=== PATIENT | female | born 1995 | race Hispanic/Latino ===

== ENCOUNTER 2018-10-27 20:04 | Emergency (ER) | payer OTHER ==
--- OUTSIDE RECORDS SUMMARY | 2018-10-27 20:06 | XMS REPORT ---
:1995 Author Organization eClinicalWorks Care Team Providers Name Role Phone Castro, Raquel Provider Role Unavailable Allergies, Adverse Reactions, Alerts Substance Reaction Event Type N.K.D.A. 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, unspecified whether recurrent Problem Anxiety F41.9 Active Assessment 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
--- OUTSIDE RECORDS SUMMARY | 2018-10-27 20:07 | XMS REPORT ---
[...] L65.9 Active Assessment Anxiety F41.9 Active Assessment Blood tests for routine general Z00.00 Active physical examination Assessment Other fatigue R53.83 Active Assessment Personal [...] Start End Status Dosage System Date Date HydrOXYzine HCl [facility] 67089351420 25 MG Orally at Nov , Active 1-2 bedtime 2017 tablet as needed Zoloft ND 11254498902 25 MG Orally Jul 14, Active 1 tablet Once a day 2017 Results No Known Results Summary Purpose eClinicalWorks Submission
--- OUTSIDE RECORDS SUMMARY | 2018-10-27 20:07 | XMS REPORT ---
[...] Status Dosage System Date Date HydrOXYzine HCl [facility] 41378426600 25 MG Orally at Active 1-2 bedtime tablet as needed HydrOXYzine HCl ND 50504543195 25 MG Orally at Active 1-2 bedtime tablet as needed Lexapro ND 44914768456 10 MG Orally Sep 08, Active 1 tablet Once a day 2018 Zoloft ND 13584493042 50 MG Orally Inactive 1 tablet Once a day Trazodone HCl ND 67019012354 50 MG Orally Sep 08, Active 1 tablet Once a day 2019 at bedtime as needed Results No Known Results Summary Purpose eClinicalWorks Submission
--- OUTSIDE RECORDS SUMMARY | 2018-10-27 20:07 | XMS REPORT ---
:1995 Author Organization eClinicalWorks Care Team Providers Name Role Phone Matthew Raquel Provider Role Unavailable Allergies, Adverse Reactions, Alerts Substance Reaction Event Type N.K.D.A. Info Not Available Non Drug Allergy Problems Problem Type Condition Code Onset Dates Condition Status Assessment Personal history of other mental Z86.59 Active and behavioral disorders Assessment Anxiety F41.9 Active Assessment Other fatigue [...] Start End Status Dosage System Date Date Trazodone HCl [facility] 79522953919 50 MG Orally Active 1 tablet Once a day at bedtime as needed HydrOXYzine HCl ND 39208651525 25 MG Orally at Active 1-2 bedtime tablet as needed HydrOXYzine HCl ND 21135060180 25 MG Orally at Active 1-2 bedtime tablet as needed Lexapro [facility] 95865370658 20 MG Orally Active 1 tablet Once a day Zoloft ND 04204341105 50 MG Orally Inactive 1 tablet Once a day Results No Known Results Summary Purpose eClinicalWorks Submission
[2018-10-27] MEDS ORDERED: IBUPROFEN 200 MG TAB PO ONE (20:33)
--- NOTE | 2018-10-27 20:55 | EDPHYS ---
Physician Documentation [facility] Name: Alethea Loja Age: 22 yrs Sex: Female : 1995 Arrival Date: 10/27/2018 Time: 20:08 Bed 18 Private MD: Raquel Castro ED Physician Damien Howard HPI: 10/27 20:33 This 22 yrs old Female presents to ER via Ambulatory with complaints of Flu jr8 Symptoms. 20:33 The patient reports fever, with an emergency department temperature of 100.2 degrees jr8 Fahrenheit. Onset: The symptoms/episode began/occurred acutely, today. Modifying factors: The patient has had contact with sick son. Associated signs and symptoms: Pertinent positives: cough, runny nose, sinus congestion, sore throat. Severity of symptoms: At their worst the symptoms were moderate in the emergency department the symptoms are unchanged. The patient has not experienced similar symptoms in the past. The patient has not recently seen a physician. 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 - Social history:: Smoking status: Patient/guardian denies using tobacco, never smoked, Patient/guardian denies using alcohol, street drugs. - Ebola Screening: : No symptoms or risks identified at this time. ROS: 20:33 Eyes: Negative for injury, pain, redness, and discharge, Neck: Negative for injury, jr8 pain, and swelling, Cardiovascular: Negative for chest pain, palpitations, and edema, Abdomen/GI: Negative for abdominal pain, nausea, vomiting, diarrhea, and constipation, Back: Negative for injury and pain, MS/Extremity: Negative for injury and deformity, Skin: Negative for injury, rash, and discoloration, Neuro: Negative for headache, weakness, numbness, tingling, and seizure. 20:33 Constitutional: Positive for body aches, chills, fever. 20:33 ENT: Positive for rhinorrhea, sinus congestion, sore throat. 20:33 Respiratory: Positive for cough, Negative for dyspnea on exertion, shortness of breath, sputum production, wheezing. Exam: 20:33 Eyes: Pupils equal round and reactive to light, extra-ocular motions intact. Lids and jr8 lashes normal. Conjunctiva and sclera are non-icteric and not injected. Cornea within normal limits. Periorbital areas with no swelling, redness, or edema. ENT: Nares patent. No nasal discharge, no septal abnormalities noted. Tympanic membranes are normal and external auditory canals are clear. Oropharynx with redness. No swelling, or masses, exudates, or evidence of obstruction, uvula midline. Mucous membranes moist. Neck: Trachea midline, no thyromegaly or masses palpated, and no cervical lymphadenopathy. Supple, full range of motion without nuchal rigidity, or vertebral point tenderness. No Meningismus. Cardiovascular: Regular rate and rhythm with a normal S1 and S2. No gallops, murmurs, or rubs. Normal PMI, no JVD. No pulse deficits. Respiratory: Lungs have equal breath sounds bilaterally, clear to auscultation and percussion. No rales, rhonchi or wheezes noted. No increased work of breathing, no retractions or nasal flaring. Abdomen/GI: Soft, non-tender, with normal bowel sounds. No distension or tympany. No guarding or rebound. No evidence of tenderness throughout. Back: No spinal tenderness. No costovertebral tenderness. Full range of motion. Skin: Warm, dry with normal turgor. Normal color with no rashes, no lesions, and no evidence of cellulitis. MS/ Extremity: Pulses equal, no cyanosis. Neurovascular intact. Full, normal range of motion. Neuro: Awake and alert, GCS 15, oriented to person, place, time, and situation. Cranial nerves II-XII grossly intact. Motor strength 5/5 in all extremities. Sensory grossly intact. Cerebellar exam normal. Normal gait. Vital Signs: 20:14 BP 129 / 87; Pulse 128; Resp 17; Temp 100.2(O); Pulse Ox 98% ; Weight 72.57 kg; Height tl1 5 ft. 2 in. (157.48 cm); Pain 7/10; 21:24 BP 118 / 85; Pulse 113; Resp 18; Pulse Ox 99% on R/A; tl2 20:14 Body Mass Index 29.26 (72.57 kg, 157.48 cm) tl1 MDM: 20:24 Patient medically screened. jr8 20:53 Data reviewed: vital signs, nurses notes, lab test result(s), Flu: positive and as a jr8 result, I will discharge patient. Data interpreted: Pulse oximetry: on room air is 98 %. Interpretation: normal. Counseling: I had a detailed discussion with the patient and/or guardian regarding: the historical points, exam findings, and any diagnostic results supporting the discharge/admit diagnosis, lab results, the need for outpatient follow up, a family practitioner, to return to the emergency department if symptoms worsen or persist or if there are any questions or concerns that arise at home. 10/27 20:20 Order name: Flu; Complete Time: 20:53 tl2 10/27 20:23 Order name: Strep; Complete Time: 20:53 tl2 10/27 20:53 Order name: Throat Culture EDMS Administered Medications: 20:24 Drug: Motrin 600 mg Route: PO; tl2 21:26 Follow up: Response: No adverse reaction tl2 Disposition: 10/28 05:49 Co-signature as Attending Physician, Damien Howard MD I agree with the assessment and tw4 plan of care. Disposition: 10/27/18 20:54 Discharged to Home. Impression: Influenza due to identified novel influenza A virus. - Condition is Stable. - Discharge Instructions: Influenza, Adult. - Prescriptions for Tamiflu 75 mg Oral Capsule - take 1 capsule by ORAL route every 12 hours for 5 days; 10 capsule. - Medication Reconciliation Form, Thank You Letter, Antibiotic Education, Prescription Opioid Use, Work release form form. - Follow up: Raquel Castro MD; When: 5 - 6 days; Reason: Recheck today's complaints, Continuance of care, Re-evaluation by your physician. - Problem is new. - Symptoms have improved. Signatures: Dispatcher [employer] EDMS Lei Pierre PA PA jr8 Annabel Medellin RN RN tl1 Sari Tavares RN RN tl2 Damien Howard MD MD tw4 Corrections: (The following items were deleted from the chart) 10/27 21:27 20:54 10/27/2018 20:54 Discharged to Home. Impression: Influenza due to identified tl2 novel influenza A virus. Condition is Stable. Forms are Medication Reconciliation Form, Thank You Letter, Antibiotic Education, Prescription Opioid Use. Follow up: Raquel Castro; When: 5 - 6 days; Reason: Recheck today's complaints, Continuance of care, Re-evaluation by your physician. Problem is new. Symptoms have improved. jr8
--- NOTE | 2018-10-27 20:55 | ER ---
Nurse's Notes [facility] Name: Alethea Loja Age: 22 yrs Sex: Female : 1995 Arrival Date: 10/27/2018 Time: 20:08 Bed 18 Private MD: Raquel Castro Diagnosis: Influenza due to identified novel influenza A virus Presentation: 10/27 20:12 Presenting complaint: Patient states: My son was diagnosed with the flu Thursday and I tl1 think I have it and would like to be tested. I started running fever today with cough and body aches. Transition of care: patient was not received from another setting of care. Onset of symptoms was October 27, 2018. Risk Assessment: Do you want to hurt yourself or someone else? Patient reports no desire to harm self or others. Initial Sepsis Screen: Does the patient meet any 2 criteria? Temp <36.0*C (96.8*F)) or > 38.3*C (100.9*F). HR > 90 bpm. Care prior to arrival: None. 20:12 Method Of Arrival: Ambulatory tl1 20:12 Acuity: ELOISE 4 tl1 20:29 Initial Sepsis Screen: Does the patient have a suspected source of infection? No. tl2 Patient's initial sepsis screen is negative. 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 - Social history:: Smoking status: Patient/guardian denies using tobacco, never smoked, Patient/guardian denies using alcohol, street drugs. - Ebola Screening: : No symptoms or risks identified at this time. Screenin:27 Abuse screen: Denies threats or abuse. Nutritional screening: No deficits noted. tl2 Tuberculosis screening: No symptoms or risk factors identified. Fall Risk None identified. Assessment: 20:25 General: Appears in no apparent distress. uncomfortable, Behavior is calm, cooperative, tl2 appropriate for age. General: Reports chills for fever for Son was diagnosed with flu on Thursday. Pain: Complains of pain in body aches. Neuro: Level of Consciousness is awake, alert, obeys commands, Oriented to person, place, time, situation. Cardiovascular: Denies chest pain. Respiratory: Reports cough that is Airway is patent Respiratory effort is even, unlabored, Respiratory pattern is regular, symmetrical, Breath sounds are clear bilaterally. GI: No signs and/or symptoms were reported involving the gastrointestinal system. EENT: Ear canal clear on left ear and right ear Throat is reddened. Derm: Skin is pink, warm \T\ dry. 21:24 Reassessment: Patient appears in no apparent distress at this time. Patient and/or tl2 family updated on plan of care and expected duration. Pain level reassessed. Patient is alert, oriented x 3, equal unlabored respirations, skin warm/dry/pink. pt verbalized understanding of discharge instructions, need for follow up and prescription usage Patient states feeling better. Vital Signs: 20:14 BP 129 / 87; Pulse 128; Resp 17; Temp 100.2(O); Pulse Ox 98% ; Weight 72.57 kg; Height tl1 5 ft. 2 in. (157.48 cm); Pain 7/10; 21:24 BP 118 / 85; Pulse 113; Resp 18; Pulse Ox 99% on R/A; tl2 20:14 Body Mass Index 29.26 (72.57 kg, 157.48 cm) tl1 ED Course: 20:08 Patient arrived in ED. es 20:08 Raquel Castro MD is Private Physician. es 20:14 Triage completed. tl1 20:16 Arm band placed on right wrist. tl1 20:17 Lei Pierre PA is PHCP. jr8 20:17 Damien Howard MD is Attending Physician. jr8 20:20 Sari Tavares RN is Primary Nurse. tl2 20:27 Patient has correct armband on for positive identification. Bed in low position. Call tl2 light in reach. Side rails up X 1. 20:27 Flu and/or RSV swab sent to lab. Strep swab sent to lab. tl2 20:54 Raquel Castro MD is Referral Physician. jr8 21:24 No provider procedures requiring assistance completed. Patient did not have IV access tl2 during this emergency room visit. Administered Medications: 20:24 Drug: Motrin 600 mg Route: PO; tl2 21:26 Follow up: Response: No adverse reaction tl2 Outcome: 20:54 Discharge ordered by MD. zimmerman 21:24 Discharged to home ambulatory. tl2 21:24 Condition: stable 21:24 Discharge instructions given to patient, Instructed on discharge instructions, follow up and referral plans. medication usage, Demonstrated understanding of instructions, follow-up care, medications, Prescriptions given X 1. 21:27 Patient left the ED. tl2 Signatures: Nguyen Ho Josh, PA PA jr8 Annabel Medellin, RN RN tl1 Sari Tavares RN RN tl2
[2018-10-27 22:23] VITALS: TEMP 100.2
[2018-10-27 22:24] VITALS: BP 118/85; O2SAT 99
== END 2018-10-27 21:27 | disposition home or self-care (01) ==
LOC: ER 20:04
DX: J10.1 Influenza due to other identified influenza virus with other respiratory manifestations (principal); F32.9 Major depressive disorder, single episode, unspecified; F41.9 Anxiety disorder, unspecified
CPT/HCPCS: 87070; 87081; 87804; 99283